=== PATIENT | female | born 1995 | race Caucasian/White ===

== ENCOUNTER 2024-03-24 05:38 | Emergency (ER) | payer OTHER ==
[2024-03-24 05:48] VITALS: BP 120/78; PULSE 79; RESP 16; TEMP 98.1; BMI 29.0
[2024-03-24] MEDS ORDERED: ACETAMINOPHEN 325 MG TABLET (FP) ONE (06:13)
[2024-03-24] MEDS: ACETAMINOPHEN 500 MG TABLET (FP) PO ONE (06:18)
[2024-03-24] MEDS ORDERED: IBUPROFEN 600 MG TABLET (FP) PO ONE (06:43)
[2024-03-24] MEDS: IBUPROFEN 600 MG TABLET (FP) PO ONE (06:44)
== END 2024-03-24 06:48 | disposition home or self-care (01) ==
LOC: JER 05:38
DX: R07.81 Pleurodynia (principal)
CPT/HCPCS: 71045-TC-FY; 84703; 93005; 93010; 99285-25